=== PATIENT | male | born 2000 | race Caucasian/White ===

== ENCOUNTER 2023-12-07 09:35 | Outpatient (CLI) | payer OTHER, SELFPAY ==
--- NOTE | 2023-12-07 11:00 | NEURO_ITS ---
Impression: # Complains of numbness of hands. # Evolving bilateral Carpal Tunnel Syndrome. # Normal needle/EMG exam. Nerve Conduction Studies Anti Sensory Summary Table Stim Site NR Peak (ms) P-T Amp (?V) Site1 Site2 Delta-P (ms) Dist (cm) Dov (m/s) Left Median Anti Sensory (2-3nd Digit) Wrist 3.5 57.0 Wrist 2-3nd Digit 3.5 14.0 40 Wrist 3.7 36.7 Wrist 2-3nd Digit 3.5 14.0 40 Right Median Anti Sensory (2-3nd Digit) Wrist 3.2 61.8 Wrist 2-3nd Digit 3.2 14.0 44 Wrist 3.4 25.9 Wrist 2-3nd Digit 3.2 14.0 44 Left Radial Anti Sensory (Base 1st Digit) Wrist 2.0 11.4 Wrist Base 1st Digit 2.0 0.0 Right Radial Anti Sensory (Base 1st Digit) Wrist 2.4 11.6 Wrist Base 1st Digit 2.4 0.0 Left Ulnar Anti Sensory (5th Digit) Wrist 2.4 48.9 Wrist 5th Digit 2.4 14.0 58 Right Ulnar Anti Sensory (5th Digit) Wrist 2.4 31.3 Wrist 5th Digit 2.4 14.0 58 Motor Summary Table Stim Site NR Onset (ms) O-P Amp (mV) Site1 Site2 Delta-0 (ms) Dist (cm) Dov (m/s) Left Median Motor (Abd Poll Brev) Wrist 4.0 2.4 Elbow Wrist 5.5 33.0 60 Elbow 9.5 2.2 Right Median Motor (Abd Poll Brev) Wrist 3.5 1.6 Elbow Wrist 4.9 29.0 59 Elbow 8.4 1.1 Left Ulnar Motor (Abd Dig Minimi) Wrist 2.5 6.7 A Elbow Wrist 5.1 31.0 61 A Elbow 7.6 5.6 Right Ulnar Motor (Abd Dig Minimi) Wrist 2.4 7.3 A Elbow Wrist 5.0 31.0 62 A Elbow 7.4 6.0 F Wave Studies NR F-Lat (ms) L-R F-Lat (ms) Left Median (Mrkrs) (Abd Poll Brev) 29.62 0.40 Right Median (Mrkrs) (Abd Poll Brev) 29.22 0.40 Left Ulnar (Mrkrs) (Abd Dig Min) 28.99 1.41 Right Ulnar (Mrkrs) (Abd Dig Min) 27.58 1.41 EMG Side Muscle Nerve Root Ins Act Fibs Amp Dur Recrt Comment Right 1stDorInt Ulnar C8-T1 Nml Nml Nml Nml Nml Right Ext Indicis Radial (Post Int) C7-8 Nml Nml Nml Nml Nml Right Ext Digitorum Radial (Post Int) C7-8 Nml Nml Nml Nml Nml Right BrachioRad Radial C5-6 Nml Nml Nml Nml Nml Right PronatorTeres Median C6-7 Nml Nml Nml Nml Nml Right Abd Poll Brev Median C8-T1 Nml Nml Nml Nml Nml Left 1stDorInt Ulnar C8-T1 Nml Nml Nml Nml Nml Left Ext Indicis Radial (Post Int) C7-8 Nml Nml Nml Nml Nml Left Ext Digitorum Radial (Post Int) C7-8 Nml Nml Nml Nml Nml Left BrachioRad Radial C5-6 Nml Nml Nml Nml Nml Left PronatorTeres Median C6-7 Nml Nml Nml Nml Nml Left Abd Poll Brev Median C8-T1 Nml Nml Nml Nml Nml Right ABD Dig Min Ulnar C8-T1 Nml Nml Nml Nml Nml Left ABD Dig Min Ulnar C8-T1 Nml Nml Nml Nml Nml MTDD
== END 2023-12-07 09:36 | disposition home or self-care (01) ==
LOC: ANHNEURO 09:38
DX: G56.03 Carpal tunnel syndrome, bilateral upper limbs (principal)
CPT/HCPCS: 95886; 95911

== ENCOUNTER 2025-03-25 18:43 | Emergency (ER) | payer OTHER, SELFPAY ==
--- NOTE | ~2025-03-25 | XR_ITS ---
HISTORY: injury a month ago, pain COMPARISON: None TECHNIQUE: 2 views of the left fifth digit were performed FINDINGS: No acute or subacute fracture. Joint spaces are preserved and alignment is maintained. Soft tissues are unremarkable without foreign body or significant calcification. Age-appropriate mineralization. IMPRESSION: Unremarkable radiographic evaluation of the left fifth digit, as detailed above. Reviewed, dictated and finalized at location A. IMPRESSION: Unremarkable radiographic evaluation of the left fifth digit, as d etailed above.
[2025-03-25 18:50] VITALS: BP 162/90; PULSE 94; RESP 18; TEMP 36.7; O2SAT 99
--- NOTE | 2025-03-25 19:04 | ED.UPPEXIN ---
HPI - Extremity Injury (Upper) General Chief Complaint: Extremity Injury, Upper Stated Complaint: Injured Finger Time Seen by Provider: 03/25/25 19:00 Source: patient and RN notes reviewed Mode of arrival: ambulatory Limitations: no limitations History of Present Illness HPI narrative: 24-year-old male presents [facility] complaining left pinky injury a month ago. He said he was playing basketball when he hyperextended his left pinky and injured it. Patient in the get insurance and then realized that he did not find these come to be evaluated for his pinky due to a deformity and pain to the PIP. Patient been taking Tylenol ibuprofen as needed for pain. Denies any other injuries. Patient also reports having right thumb/wrist pain. He says his right thumbs hurts with certain movements. He denies any injury to his right wrist or hand. Patient concerning as tendinitis his right thumb. Patient says his right thumb has been bothering for 2 months. Denies any numbness or tingling to his hands. Related Data Home Medications ?Medication ?Instructions ?Recorded ?Confirmed ?Last Taken ?Type No Home Medications 03/25/25 03/25/25 Unknown History Allergies Allergy/AdvReac Type Severity Reaction Status Date / Time No Known Allergies Allergy Verified 03/25/25 18:48 Review of Systems Review of Systems: CONSTITUTIONAL: Denies fever, chills, or sweats. EYES: Denies visual changes, redness, or discharge. ENT: Denies rhinorrhea, congestion, sore throat, or otalgia. CARDIOVASCULAR: Denies chest pain, palpitations, or edema. RESPIRATORY: Denies cough or dyspnea. GASTROINTESTINAL: Denies abdominal pain, nausea, vomiting, or diarrhea. GENITOURINARY: Denies dysuria or hematuria. SKIN: Denies rash or itching. MUSCULOSKELETAL: Denies back pain, joint pain, or myalgia. Right thumb pain and left pinky pain. NEUROLOGIC: Denies headache, numbness, or weakness. PSYCHIATRIC: Denies anxiety or depression. All other systems reviewed are negative, except as documented in HPI. [facility] Social History Social History (Updated 06/09/21 @ 09:24 by Masha Herrera MA) Smoking status: Never smoker Alcohol intake: never Substance use: never Comments At the time of my signature, I reviewed and agree with the nursing past medical, surgical, social, and family history. There is no relevant family history pertinent to the patient complaint. Exam Narrative: GENERAL: This is a well-nourished, well-developed adult, in no apparent distress. They are non ill-appearing, nontoxic appearing. HEAD: normocephalic, atraumatic. EYES: Sclera clear/white. Conjunctiva normal. Vision is grossly intact. Extraocular movements intact EARS: External ears normal, Hearing grossly intact. NOSE: External nose normal THROAT: Mucous membranes moist, NECK: Normal range of motion CARDIOVASCULAR: Regular rate and rhythm RESPIRATORY: Respiratory rate normal, respiratory effort nonlabored, no respiratory distress SKIN: warm, Dry, intact with no suspicious lesions or rash, good texture and turgor. NEURO: awake, alert, and oriented to person, place and time. There were no obvious focal neurologic abnormalities. EXTREMITIES: Left pinky: Swelling and deformity present to the patient's pinky at the PIP. Capillary refill less than 2 seconds. Normal sensation, neurovascular status intact distal injury. Patient is able to bend his pinky against resistance at the PIP, DIP and MCP. Mild tenderness to palpation to deformity. Patient did make a fist, stop sign, thumbs-up, and okay sign. Right thumb/wrist: No obvious deformity, swelling, injury, redness, bruising point tenderness to palpation over the radial styloid. Positive Keely test. Normal range of motion, neurovascular status intact. Capillary refill less than 2 seconds. Radial pulse 2+ palpable. BACK: Nontender without deformity. No CVA tenderness. Course Course Emergency Course: Portions of this record may have been created with voice recognition software Level of Care: Express Care Visit Vital Signs Vital signs: Vital Signs Temperature 98.1 F 03/25/25 18:50 Pulse Rate 94 03/25/25 18:50 Respiratory Rate 18 03/25/25 18:50 Blood Pressure 162/90 H 03/25/25 18:50 Pulse Oximetry 99 03/25/25 18:50 Oxygen Delivery Room Air 03/25/25 18:50 Temperature 98.1 F 03/25/25 18:50 Pulse Rate 94 03/25/25 18:50 Respiratory Rate 18 03/25/25 18:50 Blood Pressure 162/90 H 03/25/25 18:50 Pulse Oximetry 99 03/25/25 18:50 Oxygen Delivery Room Air 03/25/25 18:50 Reviewed Procedures Orthopedic Splinting/Casting Injury #1: Splinting/Casting Date: 03/25/25 Splinting/Casting Time: 20:00 Side: left Upper Extremity Injury Location: finger (5th digit) Splint: prefabricated Pre-Formed: metal foam finger splint Pre-Procedure Neuro Vascular Exam: normal Post-Procedure Neuro Vascular Exam: normal Additional Comments: Patient tolerated procedure well. MDM - Extremity Injury (Upper) MDM Narrative Medical decision making narrative: X-ray preliminary results reveals a possible minimally displaced proximal phalanx fracture of the 5th digit, this injury occurred approximately 1 month ago. Appears to be healing well. Will contact patient with official results of his x-ray. Patient was placed in the middle finger splint and advised to follow-up with a hand specialist orthopedist. Patient's right thumb is showing evidence of de Quervain tendinopathy, advised patient to follow-up with orthopedist for further evaluation. Patient is recommended to purchase a thumb spica splint to wear for comfort. Discussed physical exam findings. Advised supportive measures and signs/symptoms to go to the ER. Pt is appropriate for outpt treatment and f/u. Differential Diagnosis Differential diagnosis: Likely other (Finger fracture, finger sprain, tendinitis) Imaging Data Attestation: I personally reviewed and interpreted this imaging study as follows: My impression: Minimally displaced fracture to the proximal phalanx of the 5th digit Critical Care Time Critical Care Time Critical Care Time: No Discharge Plan Discharge Clinical Impression: Pain of right thumb Closed fracture of phalanx of little finger Qualifiers: Encounter type: initial encounter Phalanx: unspecified phalanx Fracture alignment: nondisplaced Laterality: left Qualified Code(s): S62.607A - Fracture of unspecified phalanx of left little finger, initial encounter for closed fracture Patient Disposition: Home Condition: Stable Instructions: Finger Fracture (ED), De Quervain Disease (ED) Additional Instructions: You will be contacted about your official radiology results. Unofficial results appear that you have a minimally displaced fracture fracture of your left pinky. Please wear the metal splint, you may take it off to shower. Please follow-up with an orthopedist or hand specialist for further evaluation and management of your pinky fracture. Is possibly your right thumb has de Quervain tendinopathy please follow-up with orthopedist for further evaluation of your right thumb pain. You may wear a thumb spica splint to your right hand for comfort. Take Tylenol or ibuprofen as needed for pain. Patient Language: [place] Prescriptions: No Action No Home Medications Follow-up/Referrals: Saurabh Davidson MD [Physician] - () Caio Daniel MD [Physician] - PHYSICIAN,STEAMER OPERATOR [Primary Care Provider] - Time of Disposition: 20:25
== END 2025-03-25 20:28 | disposition home or self-care (01) ==
DX: S62.607A Fracture of unspecified phalanx of left little finger, initial encounter for closed fracture (principal); X50.0XXA Overexertion from strenuous movement or load, initial encounter; Y93.67 Activity, basketball
CPT/HCPCS: 29130; 73140; 99213; G0463